=== PATIENT | male | born 1925 | race Caucasian/White ===

== ENCOUNTER 2016-09-15 00:07 | Observation (INO) | payer MEDICARE ==
[2016-09-15] MEDS ORDERED: fentaNYL* 50 MCG/ML 2 ML VIAL (100 MCG VIAL) IV SLOW PU ONE (01:52)
[2016-09-15 03:46] LABS: Hematocrit 34 % (42-52); Hemoglobin 11.7 g/dl (14.0-18.0); Mean Corpuscular HGB Conc 34 g/dl (31-36); Mean Corpuscular Hemoglobin 31 pg (27-31); Mean Corpuscular Volume 90 fL (80-94); Mean Platelet Volume 8 um3 (7.4-10.4); Red Blood Count 3.82 10^6/ul (4.0-5.4); Red Cell Distribution Width 13 % (10.5-15); White Blood Count 10.4 10^3/ul (3.5-10.8)
[2016-09-15 03:47] LABS: Add Diff/Slide Review? Slide Review Added; Comments Flag Yes
[2016-09-15 03:59] LABS: Albumin 3.5 g/dL (3.2-5.2); BUN/Creatinine Ratio 19.1 (8-20); C Reactive Protein 19.27 mg/L (< 5.00); Calcium 9.4 mg/dL (8.6-10.3); EGFR African American 103.5 (>60); EGFR Non-African American 80.5 (>60); Globulin 2.8 g/dL (2-4); Potassium 3.9 mmol/L (3.5-5.0); Total Bilirubin 0.5 mg/dL (0.2-1.0); Total Protein 6.3 g/dL (6.4-8.9)
--- NOTE | 2016-09-15 05:38 | HP ---
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 His came to check on him and called for assistance getting him back up. He reported R hip & elbow pain and so was brought in for evaluation. He has moderate Alzheimer's and is unable to recall the event or whether there was any prodromal symptoms. Currently he denies pain, chest pain, SOB, N/V, cough, congestion, or other issues. CT pelvis reveals a fracture of the R greater trochanter. Vitals and labs are reasonably normal for him. PMedHx prostate CA stg 4 w/ extensive bony metastases AFIB CAD/stent HTN Alzheimer's dementia, moderately advanced depression OAB Ambulatory Orders Bicalutamide [Casodex] 50 mg PO DAILY 10/28/15 Ondansetron ODT TAB* [Zofran Odt TAB*] 4 mg PO Q6H PRN 10/28/15 Venlafaxine HCl [Venlafaxine HCl ER-] 37.5 mg PO DAILY 10/28/15 fentaNYL PATCH 25 MCG/HR* [Duragesic PATCH 25 Mcg/Hr*] 25 mcg TRANSDERM Q72H 04/03 Megestrol TAB* [Megace TAB*] 20 mg PO DAILY 12/21/15 Metoprolol Succinate 25 mg PO DAILY 09/15/16 Vesicare(NF) 20 mg PO DAILY 09/15/16 Allergies Atorvastatin [From Lipitor] Allergy (Intermediate, Verified 09/15/16 03:41) Calf spasms Lisinopril Allergy (Verified 09/15/16 03:41) Swelling Of Face,Lips,& Throat, PALATE SWELLS PSurgHx L-spine surgery L TKA B VANESSA appendectomy SocHx: former smoker, rare alcohol, no recreational drugs; lives with his ; full code status FamHx: Mother passed in her 80s of "old age". Father passed of CVA. Sister passed 2nd complications of Alzheimer's. ROS: as above, otherwise reviewed and all were negative Constitutional: NAD, normally developed, well-nourished elderly white male vitals: Vital Signs Temp 36.6 C 09/15/16 00:10 Pulse 84 09/15/16 03:59 Resp 18 09/15/16 02:38 BP 151/67 09/15/16 03:30 Pulse Ox 96 09/15/16 03:59 Intake & Output 09/14/16 09/14/16 09/15/16 11:59 23:59 11:59 Weight 72.575 kg HEENM: atraumatic; sclera/conjunctiva: non-icteric/clear; hearing: clinically intact; oropharynx: clear, mucosa moist Neck: soft tissue: non-tender; thyroid: normal Pulmonary: clear to auscultation bilaterally, good aeration, no accessory muscle use CV: RR/RR, normal S1S2, no carotid bruit, no jugular venous distention, 2+ B DP/ PT, no edema Abdominal: soft, non-distended, non-tender, no rebound/guarding/rigidity, normoactive bowel sounds, no hepatosplenomegaly or masses, no costovertebral angle tenderness Musculoskeletal: general: grossly intact; gait: at baseline uses walker for very short distance, otherwise uses wheelchair Integumental: normal appearance and texture of exposed skin Psychiatric orientation: AA&O to person only affect: calm mood: pleasant eye contact: good content: unreliable responses: timely insight: poor to absent Testing: Lab Results 09/15/16 09/15/16 09/15/16 Range/Units 03:30 03:30 03:30 WBC 10.4 (3.5-10.8) 10^3/ul RBC 3.82 L (4.0-5.4) 10^6/ul Hgb 11.7 L (14.0-18.0) g/dl Hct 34 L (42-52) % MCV 90 (80-94) fL MCH 31 (27-31) pg MCHC 34 (31-36) g/dl RDW 13 (10.5-15) % Plt Count 174 (150-450) 10^3/ul MPV 8 (7.4-10.4) um3 Neut % (Auto) 84.6 H (38-83) % Lymph % (Auto) 3.8 L (25-47) % [place] % (Auto) 6.4 (1-9) % Eos % (Auto) 2.6 (0-6) % Baso % (Auto) 2.6 H (0-2) % Absolute Neuts (auto) 8.8 H (1.5-7.7) 10^3/ul Absolute Lymphs (auto) 0.4 L (1.0-4.8) 10^3/ul Absolute Monos (auto) 0.7 (0-0.8) 10^3/ul Absolute Eos (auto) 0.3 (0-0.6) 10^3/ul Absolute Basos (auto) 0.3 H (0-0.2) 10^3/ul Absolute Nucleated RBC 0 10^3/ul Nucleated RBC % 0 INR (Anticoag Therapy) 1.08 (0.89-1.11) Sodium 134 (133-145) mmol/L Potassium 3.9 (3.5-5.0) mmol/L Chloride 104 (101-111) mmol/L Carbon Dioxide 22 (22-32) mmol/L Anion Gap 8 (2-11) mmol/L BUN 17 (6-24) mg/dL Creatinine 0.89 (0.67-1.17) mg/dL Est GFR ( Amer) 103.5 (>60) Est GFR (Non-Af Amer) 80.5 (>60) BUN/Creatinine Ratio 19.1 (8-20) Glucose 108 H (70-100) mg/dL Calcium 9.4 (8.6-10.3) mg/dL Total Bilirubin 0.50 (0.2-1.0) mg/dL AST 21 (13-39) U/L ALT 13 (7-52) U/L Alkaline Phosphatase 164 H (34-104) U/L C-Reactive Protein 19.27 H (< 5.00) mg/L Total Protein 6.3 L (6.4-8.9) g/dL Albumin 3.5 (3.2-5.2) g/dL Globulin 2.8 (2-4) g/dL Albumin/Globulin Ratio 1.3 (1-3) ECG, personally reviewed: NSR rate 85, no ischemia CXR, personally reviewed: no acute process CT pelvis WO: Questionable acute pathologic/post-traumatic fracture right greater trochanter. Alternatively, cortical irregularities could be secondary to metastatic erosions. Partly seen soft tissue density above the left hip at extending inferiorly along left greater trochanter, measuring approximately 17.5x8.0x4.9cm, probably an acute hematoma. Small calcifications along lateral border, age uncertain. Partly seen density posterior to right greater trochanter up to 2.8cm thick, possibly another soft tissue hematoma. Multiple lytic and sclerotic lesions, consistent with history of metastases. Bilateral L5 spondylosis with grade 1 aterolisthesis L5-S1. Bilateral hip arthroplasties. Small left inguinal region hernia containing fat. Small bladder diverticula. Diverticulosis colon. Impression: 89M HX metastatic prostate CA presents with mechanical fall and ? pathologic FX of R greater trochanter DIAGNOSIS & PLAN Primary FX of R greater trochanter, ? pathologic : orthopedic surgery consult in AM : pain control : PT evaluation Secondary metastatic prostate CA : continue outpatient follow up with oncology AFIB : continue metoprolol CAD/stent : no acute issues HTN : continue metoprolol depression : continue venlafaxine OAB : continue vesicare Admission Rational: inpatient for L greater trochanter FX not expected to be adequately managed w/i 48H to allow for discharge DVTp: SCDs, no anticoagulation given acute pelvic hematoma Code Status: full HCP:
[2016-09-15] MEDS ORDERED: Acetaminophen TAB* 325 MG PO PRN (06:24)
[2016-09-15] MEDS ORDERED: Ondansetron INJ* 2 MG/ML VIAL IV PRN (06:24)
[2016-09-15] MEDS ORDERED: Albuterol 2.5 MG/3 ML NEB.SOL* (0.083%) INH PRN (06:24)
[2016-09-15] MEDS ORDERED: fentaNYL* 50 MCG/ML 2 ML VIAL (100 MCG VIAL) IV SLOW PU PRN (06:25)
[2016-09-15] MEDS ORDERED: HYDROmorphone* 1 MG/ML 1 ML SYR ONE (07:52)
[2016-09-15] MEDS: HYDROmorphone* 1 MG/ML 1 ML SYR IV SLOW PU PRN (07:56)
[2016-09-15] MEDS: traMADol TAB* 50 MG PO PRN ×2 (07:56→15:07)
--- NOTE | 2016-09-15 11:40 | PN ---
Subjective Date of Service: 09/15/16 Interval History: Mr. Garcia is accompanied by his , Citlali. He denies pain at this time. He does not endorse any acute concerns, including recent fever/chills, CP, SOB, abd pain , n/v. His is helping to feed him. She states that she recently spoke with Dr. Millan and there was a previous plan to have the patient admitted to [facility] prior to his fall. She still wishes him to be a full code. She has spoken with the orthopedist, who was going to speak with Dr. Aggarwal. At this time, no acute concerns or complaints. Family History: Unchanged from Admission Social History: Unchanged from Admission Past Medical History: Unchanged from Admission Objective Active Medications: Acetaminophen (Tylenol Tab*) 650 mg PO Q6H PRN PRN Reason: FEVER/PAIN Albuterol (Ventolin 2.5 Mg/3 Ml Neb.[place]*) 2.5 mg INH Q2H PRN PRN Reason: SOB/WHEEZING Bicalutamide (Casodex (Nf)) 50 mg PO DAILY JUAN PRN Reason: Protocol Docusate Sodium (Colace Cap*) 200 mg PO BID JUAN Fentanyl Citrate (Fentanyl*) 25 mcg IV SLOW PU Q3H PRN PRN Reason: PAIN Hydromorphone HCl (Dilaudid Iv*) 0.5 mg IV SLOW PU Q4H PRN PRN Reason: PAIN Last Admin: 09/15/16 07:56 Dose: 0.5 mg Sodium Chloride (Ns 0.9% 1000 Ml*) 1,000 mls @ 50 mls/hr IV PER RATE [facility] Megestrol Acetate (Megace Tab*) 20 mg PO DAILY [facility] Melatonin (Melatonin (Nf)) 3 mg PO BEDTIME PRN; Protocol PRN Reason: Sleep Metoprolol Succinate (Toprol Xl Tab*) 25 mg PO DAILY JUAN Omeprazole (Prilosec Cap*) 20 mg PO DAILY@0600 JUAN Ondansetron HCl (Zofran Inj*) 4 mg IV Q6H PRN PRN Reason: NAUSEA Solifenacin (Vesicare(Nf)) 20 mg PO DAILY JUAN Tramadol HCl (Ultram*) 50 mg PO Q6H PRN PRN Reason: PAIN Last Admin: 09/15/16 07:56 Dose: 50 mg Venlafaxine HCl (Effexor Xr Cap*) 37.5 mg PO DAILY JUAN Vital Signs 09/15/16 09/15/16 09/15/16 06:55 06:57 06:59 Temperature 98.9 F Pulse Rate 70 63 Respiratory 18 Rate Blood Pressure 131/66 131/66 (mmHg) O2 Sat by Pulse 96 94 Oximetry 09/15/16 09/15/16 07:45 07:56 Temperature 98.2 F Pulse Rate 77 Respiratory 16 16 Rate Blood Pressure 137/67 (mmHg) O2 Sat by Pulse 98 Oximetry Oxygen Devices in Use Now: None Appearance: Pleasant, elderly male, lying in bed, NAD Eyes: PERRLA Ears/Nose/Mouth/Throat: Mucous Membranes Moist Neck: NL Appearance and Movements; NL JVP Respiratory: Symmetrical Chest Expansion and Respiratory Effort, Clear to Auscultation Cardiovascular: NL Sounds; No Murmurs; No JVD, RRR Abdominal: NL Sounds; No Tenderness; No Distention Extremities: No Edema, - - distal pulses 2+, sensation and movement to distal extremites intact Neurological: - - alert, oriented to person only Lines/Tubes/Other Access: Clean, Dry and Intact Peripheral IV Nutrition: Taking PO's Result Diagrams: 09/15/16 03:30 09/15/16 03:30 Assess/Plan/Problems-Billing Assessment: Mr. Garcia is an 89 yo male with a PMH of stage 4 metastatic prostate ca, atrial fib, CAD with stent, HTN, overactive bladder, Alzheimer's dementia, and depression who was admitted on 09/15/16 after a fall at home; pt was found to have a fracture of the right greater trochanter (question if pathologic). - Patient Problems (1) Fracture of greater trochanter of right femur Code(s): S72.111A - DISP FX OF GREATER TROCHANTER OF RIGHT FEMUR, INIT Comment : Ortho consult ? if pathologic or secondary to fall Pain management (2) Prostate cancer Code(s): C61 - MALIGNANT NEOPLASM OF PROSTATE Comment: Stage IV with metastases to bone Continue home bicalutamide Outpatient follow-up with oncology (3) Atrial fibrillation Code(s): I48.91 - UNSPECIFIED ATRIAL FIBRILLATION Comment: Not an active issue Continue home metoprolol. (4) CAD (coronary artery disease) Code(s): I25.10 - ATHSCL HEART DISEASE OF [place] CORONARY ARTERY W/O ANG PCTRS Comment: History of stent placement Continue beta luis antonio. (5) HTN (hypertension) Code(s): I10 - ESSENTIAL (PRIMARY) HYPERTENSION Comment: Normotensive Continue metoprolol. (6) Alzheimer's dementia Code(s): G30.9 - ALZHEIMER'S DISEASE, UNSPECIFIED Comment: Supportive care (7) Overactive bladder Code(s): N32.81 - OVERACTIVE BLADDER Comment: Continue vesicare. (8) Depression Code(s): F32.9 - MAJOR DEPRESSIVE DISORDER, SINGLE EPISODE, UNSPECIFIED Comment: Continue venlafaxine. (9) DVT prophylaxis Code(s): USP8587 - Comment: Concern for acute pelvic hematoma, anticoagulation contraindicated SCDs (10) Full code status Code(s): Z78.9 - OTHER SPECIFIED HEALTH STATUS Comment: Discussed with patient's , who is HCP Remains full code as of 09/15/16 Status and Disposition: Inpatient admission. Anticipate LOS >2 days.
[2016-09-15] MEDS: Solifenacin(NF) 10 MG TAB PO SCH (11:50)
[2016-09-15] MEDS: BICALUTAMIDE 50 MG PO SCH (11:52)
[2016-09-15] MEDS: Docusate CAP* 100 MG PO SCH ×2 (11:52→20:48)
[2016-09-15] MEDS: Metoprolol Succinate XL TAB* 25 MG PO SCH (11:52)
[2016-09-15] MEDS: Megestrol TAB* 40 MG PO SCH (11:53)
[2016-09-15] MEDS: Venlafaxine EXT RELEASE CAP* 37.5 MG PO SCH (11:53)
--- NOTE | 2016-09-15 11:57 | RAD ---
Indication: RIGHT knee pain post fall. Comparison: No relevant prior exams available on the [facility]. Technique: AP, tunnel, lateral, and sunrise views RIGHT knee Report: Small suprapatellar joint effusion. Bone density appears decreased throughout. No fracture evident. Severe osteophytosis and joint space narrowing most marked at the femoral tibial articulations with flattening of the articular surfaces and subchondral sclerosis. Associated 1.2 cm lateral translation of the tibial plateau relative to the femoral condyles. Small loose bodies at the medial joint recess. Mild anterior soft tissue swelling. Vascular calcifications. IMPRESSION: 1. Negative for fracture. 2. Small suprapatellar joint effusion. 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
--- NOTE | 2016-09-15 12:06 | CONS ---
CONSULTATION REPORT: DATE OF CONSULT: 09/15/16 ATTENDING PHYSICIAN: Dr. Andrew Bowden. CONSULTING PHYSICIAN: Dr. Dang. PRIMARY CARE PHYSICIAN: Dr. Millan. POULTRY BREEDER: Dr. Giraldo. CHIEF COMPLAINT: Right hip pain. HISTORY OF PRESENT ILLNESS: Briefly, Mr. Garcia is an 89-year-old male with stage IV prostate cancer and moderate dementia and moderate Alzheimer's disease , who fell on September 14, when he slipped down a chair on the floor. This is his second fall. He also fell about 5 weeks ago on the right side, but was able to ambulate after that. His came to check on him and called for assistance to lift him up. He had a lot of right hip pain and was unable to fully bear weight. He was brought in for evaluation. After obtaining x-rays and a CT scan in the ER, he was diagnosed with a nondisplaced pathologic fracture of the greater trochanter. Otherwise, he has been in the usual state of health. He is supposed to go [facility] for placement on Friday. PAST MEDICAL HISTORY: Prostate cancer, stage IV, with extensive bony metastasis ; AFib; coronary artery disease; hypertension; Alzheimer's dementia; moderately advanced depression. PAST SURGICAL HISTORY: Lumbar spine surgery, bilateral total hip arthroplasty, left total knee arthroplasty, all done by Dr. Navjot Hussein in the ; appendectomy. MEDICATIONS: 1. Acetaminophen. 2. Albuterol. 3. Casodex. 4. Colace. 5. Fentanyl. 6. Dilaudid. 7. Megace. 8. Melatonin. 9. Toprol. 10. Prilosec. 11. Zofran. 12. VESIcare. 13. Ultram. 14. Effexor. ALLERGIES: To ATORVASTATIN and LISINOPRIL. FAMILY HISTORY: His mother in the 80s of old age. Father had a cerebrovascular event. Sister passed complications due to Alzheimer's disease. SOCIAL HISTORY: He is a former smoker. He drinks alcohol rarely. He lives with his . He is about to be transferred to [facility]. He ambulates only in the house with a walker. Otherwise, she has been caring for him. REVIEW OF SYSTEMS: A 14-point review of systems is reviewed with the patient and is significant for the above complaint. Otherwise, remainder of systems is negative. PHYSICAL EXAM: He is in no acute distress. He is well developed, well nourished. He is alert and oriented only to himself. He is pleasant. He is conversant, but he is very confused. Chest is clear. He breaths comfortably without any difficulty. Heart has regular rate and rhythm. Examination of the right leg demonstrates his skin is intact. He has a well-healed incision about the hip. He is very tender to palpation. I do not see any obvious bruising, although it is difficult to mobilize him in the bed. He is nontender about the knee, although he is resting with his hip in a flexed position. His calf is soft and nontender. He is able to dorsiflex/plantarflex his ankle. He is sensate to light touch about the first dorsal webspace, medial, lateral, dorsal , and plantar foot. He has 2+ PT pulse. DIAGNOSTIC STUDIES/LAB DATA: Dated on September 15 demonstrates white blood cell count of 10.4, hematocrit 34, and platelet count 174. INR 1.08. Sodium is 134 , potassium 3.9, chloride 104, carbon dioxide 22, BUN 17, creatinine 0.89, glucose 108, alk phos is 164. CRP is 19.27. X-rays reviewed that include views of the pelvis demonstrate extensive metastatic disease of the pelvis as well as the hip as well as the pathologic fracture of the greater trochanter. There was CT scan done as well, although the fracture is visible, which demonstrates again he has extensive metastatic disease in his pelvis as well as his hips and this is a pathologic fracture through mets. The x-rays of the knee were also reviewed. Otherwise, he does have a total hip arthroplasty, which is in good condition. Examination of his right knee demonstrates significant osteoarthritis with deformity of the knee. His bone-on - bone arthritis appears to be significant varus deformity. ASSESSMENT AND PLAN: He is 89 years old. He has multiple medical problems including moderate Alzheimer's. He also has stage IV prostate cancer. At this point, his fracture has not been displaced and even though he has a lot of pain with weightbearing, I think we will try a course of nonoperative treatment. I will discuss this again with my joints colleague, Dr. Aggarwal, to see what her input is, likely either she or I will follow this, but for now I would not recommend operative treatment. I would recommend pain control. He can do PT/ OT. He is allowed to touch down and weight bear. He is not allowed to abduct his hip nor should he internally or externally rotate it significant. CC: Dr. Millan * [id number]/[facility] #: [id number] MTDD
--- NOTE | 2016-09-15 12:35 | RAD ---
Indication: RIGHT hip pain post fall. Prostate carcinoma with bone metastasis. Comparison: December 21, 2015 CT. Technique: Noncontrast CT pelvis. Multiplanar reformation with bone algorithm. Report: Artifact from the bilateral hip prostheses. Diffuse osteoblastic bone metastasis. Bilateral hip prostheses in place with normal articular alignment. The distal aspects of the stems of the femoral components are not completely included in the [id number]. No gross stigmata of prosthesis loosening. There is an acute appearing avulsion fracture of the RIGHT greater trochanter reference the coronal reformatted series images 86-100 of 145 with approximate 7 mm cephalad displacement. Suggestion of periosseous hematoma posterior to the fracture measuring up to 3.1 cm AP by 5.4 cm transverse by 7.3 cm cephalocaudal. No additional fracture evident within the [id number]. Unchanged probable chronic hematoma posterolateral to the LEFT hip measures up to 6.1 cm AP by 6.4 cm transverse by 12.8 cm cephalocaudal with associated marginal calcifications. Normal alignment at the sacroiliac joints and pubic symphysis. Lumbar sacral spine degenerative spondylosis and facet joint osteoarthritis. Negative for free pelvic fluid or suspicious finding of the visualized lower abdominal and pelvic viscera. IMPRESSION: 1. No significant change in burden of diffuse osteoblastic metastasis. 2. Acute avulsion fracture of the RIGHT greater trochanter reference the coronal reformatted series images 86-100 of 145 with approximate 7 mm cephalad displacement. Suggestion of associated periosseous hematoma posterior to the fracture measuring up to 3.1 cm AP by 5.4 cm transverse by 7.3 cm cephalocaudal. No additional fracture evident within the [id number]. 2. No evidence for RIGHT or LEFT hip joint malalignment or prosthesis loosening.
--- NOTE | 2016-09-15 12:38 | RAD ---
Indication: RIGHT hip pain post fall. Metastatic prostate carcinoma. Comparison: CT of the same date. Technique: AP pelvis and AP and frog-leg lateral views RIGHT hip. Report: Diffuse osteoblastic metastatic lesions. The RIGHT hip prosthesis is normally located and without compelling evidence for loosening. Avulsion fracture at the RIGHT greater trochanter likely pathologic secondary to high burden of metastatic disease with only mild superior displacement measuring less than 1 cm. Soft tissue density visualized superior to the RIGHT greater trochanter corresponds with hematoma on CT. No additional fractures evident. Unremarkable appearance of the LEFT hip prosthesis in the AP projection. Lumbar sacral spine degenerative spondylosis and facet joint osteoarthritis. IMPRESSION: Probable pathologic avulsion fracture of the RIGHT greater trochanter with only mild cephalad displacement. Associated periosseous hematoma.
--- NOTE | 2016-09-15 12:45 | RAD ---
Indication: Preoperative chest radiograph for hip fracture. Diffuse osteoblastic metastasis. Comparison: December 21, 2015 CT. Technique: Upright AP 0410 hours Report: Diffuse osteoblastic metastasis. Mild prominence of the interstitial markings. No focal pulmonary lesion, pleural effusion, pneumothorax. Upper normal heart size. Unremarkable central pulmonary vasculature. Mildly tortuous descending thoracic aorta. IMPRESSION: 1. Diffuse osteoblastic metastasis. 2. Upper normal heart size. 3. No evidence for acute intrathoracic disease.
[2016-09-15 14:08] LABS: Hematocrit 34 % (42-52); Hemoglobin 11.8 g/dl (14.0-18.0)
[2016-09-15] MEDS ORDERED: Haloperidol INJ IV/IM* 5 MG/ML AMP IV SLOW PU PRN (16:20)
[2016-09-15] MEDS ORDERED: QUEtiapine TAB* 25 MG PO PRN (16:20)
[2016-09-16] MEDS: traMADol TAB* 50 MG PO PRN ×3 (00:01→20:00)
[2016-09-16] MEDS: MELATONIN 3 MG PO PRN ×2 (00:43→22:15)
[2016-09-16] MEDS: NS 0.9% 1000 ML* 1,000 ML IV SCH ×2 (02:53→22:18)
[2016-09-16] MEDS: Omeprazole CAP* 20 MG PO SCH (06:00)
[2016-09-16] MEDS: HYDROmorphone* 1 MG/ML 1 ML SYR IV SLOW PU PRN (08:23)
--- NOTE | 2016-09-16 08:58 | PN ---
Subjective Date of Service: 09/16/16 Family History: Unchanged from Admission Social History: Unchanged from Admission Past Medical History: Unchanged from Admission Objective Active Medications: Acetaminophen (Tylenol Tab*) 650 mg PO Q6H PRN PRN Reason: FEVER/PAIN Last Admin: 09/15/16 15:08 Dose: 650 mg Albuterol (Ventolin 2.5 Mg/3 Ml Neb.[place]*) 2.5 mg INH Q2H PRN PRN Reason: SOB/WHEEZING Bicalutamide (Casodex (Nf)) 50 mg PO DAILY [facility] PRN Reason: Protocol Last Admin: 09/15/16 11:52 Dose: 50 mg Docusate Sodium (Colace Cap*) 200 mg PO BID [facility] Last Admin: 09/15/16 20:48 Dose: 200 mg Fentanyl Citrate (Fentanyl*) 25 mcg IV SLOW PU Q3H PRN PRN Reason: PAIN Haloperidol Lactate (Haldol Inj Iv/Im*) 2 mg IV SLOW PU Q6H PRN PRN Reason: AGITATION Hydromorphone HCl (Dilaudid Iv*) 0.5 mg IV SLOW PU Q4H PRN PRN Reason: PAIN Last Admin: 09/16/16 08:23 Dose: 0.5 mg Sodium Chloride (Ns 0.9% 1000 Ml*) 1,000 mls @ 50 mls/hr IV PER RATE [facility] Last Admin: 09/16/16 02:53 Dose: 50 mls/hr Megestrol Acetate (Megace Tab*) 20 mg PO DAILY [facility] Last Admin: 09/15/16 11:53 Dose: 20 mg Melatonin (Melatonin (Nf)) 3 mg PO BEDTIME PRN; Protocol PRN Reason: Sleep Last Admin: 09/16/16 00:43 Dose: 3 mg Metoprolol Succinate (Toprol Xl Tab*) 25 mg PO DAILY [facility] Last Admin: 09/15/16 11:52 Dose: 25 mg Omeprazole (Prilosec Cap*) 20 mg PO DAILY@0600 [facility] Last Admin: 09/16/16 06:00 Dose: 20 mg Ondansetron HCl (Zofran Inj*) 4 mg IV Q6H PRN PRN Reason: NAUSEA Quetiapine Fumarate (Seroquel Tab*) 12.5 mg PO DAILY PRN PRN Reason: AGITATION/ANXIETY Solifenacin (Vesicare(Nf)) 20 mg PO DAILY [facility] Last Admin: 09/15/16 11:50 Dose: Not Given Tramadol HCl (Ultram*) 50 mg PO Q6H PRN PRN Reason: PAIN Last Admin: 09/16/16 06:00 Dose: 50 mg Venlafaxine HCl (Effexor Xr Cap*) 37.5 mg PO DAILY [facility] Last Admin: 09/15/16 11:53 Dose: 37.5 mg Vital Signs 09/15/16 09/15/16 09/15/16 12:00 13:48 14:28 Temperature 98.9 F Pulse Rate 74 74 Respiratory 15 16 Rate Blood Pressure 127/49 (mmHg) O2 Sat by Pulse 95 95 Oximetry 09/15/16 09/15/16 09/15/16 15:07 15:44 17:07 Temperature 97.5 F Pulse Rate 66 Respiratory 16 14 16 Rate Blood Pressure 115/49 (mmHg) O2 Sat by Pulse 97 Oximetry 09/15/16 09/15/16 09/15/16 19:45 19:48 20:15 Temperature 98.2 F Pulse Rate 61 Respiratory 17 17 16 Rate Blood Pressure 114/47 (mmHg) O2 Sat by Pulse 96 Oximetry 09/16/16 09/16/16 09/16/16 00:01 02:01 03:58 Temperature Pulse Rate 60 Respiratory 16 16 16 Rate Blood Pressure 148/58 (mmHg) O2 Sat by Pulse 95 Oximetry 09/16/16 09/16/16 09/16/16 06:00 08:00 08:14 Temperature 98.1 F Pulse Rate 60 Respiratory 16 18 18 Rate Blood Pressure 134/60 (mmHg) O2 Sat by Pulse 96 Oximetry 09/16/16 09/16/16 08:23 08:49 Temperature Pulse Rate 76 Respiratory 18 15 Rate Blood Pressure (mmHg) O2 Sat by Pulse 95 Oximetry Oxygen Devices in Use Now: None Result Diagrams: 09/15/16 14:01 09/15/16 03:30 Assess/Plan/Problems-Billing Assessment: Mr. Garcia is an 89 yo male with a PMH of stage 4 metastatic prostate ca, atrial fib, CAD with stent, HTN, overactive bladder, Alzheimer's dementia, and depression who was admitted on 09/15/16 after a fall at home; pt was found to have a fracture of the right greater trochanter (question if pathologic). - Patient Problems (1) Fracture of greater trochanter of right femur Code(s): S72.111A - DISP FX OF GREATER TROCHANTER OF RIGHT FEMUR, INIT Comment : Ortho consult ? if pathologic or secondary to fall Pain management (2) Prostate cancer Code(s): C61 - MALIGNANT NEOPLASM OF PROSTATE Comment: Stage IV with metastases to bone Continue home bicalutamide Outpatient follow-up with oncology (3) Atrial fibrillation Code(s): I48.91 - UNSPECIFIED ATRIAL FIBRILLATION Comment: Not an active issue Continue home metoprolol. (4) CAD (coronary artery disease) Code(s): I25.10 - ATHSCL HEART DISEASE OF [place] CORONARY ARTERY W/O ANG PCTRS Comment: History of stent placement Continue beta luis antonio. (5) HTN (hypertension) Code(s): I10 - ESSENTIAL (PRIMARY) HYPERTENSION Comment: Normotensive Continue metoprolol. (6) Alzheimer's dementia Code(s): G30.9 - ALZHEIMER'S DISEASE, UNSPECIFIED Comment: Supportive care (7) Overactive bladder Code(s): N32.81 - OVERACTIVE BLADDER Comment: Continue vesicare. (8) Depression Code(s): F32.9 - MAJOR DEPRESSIVE DISORDER, SINGLE EPISODE, UNSPECIFIED Comment: Continue venlafaxine. (9) DVT prophylaxis Code(s): [id number] - Comment: Concern for acute pelvic hematoma, anticoagulation contraindicated SCDs (10) Full code status Code(s): Z78.9 - OTHER SPECIFIED HEALTH STATUS Comment: Discussed with patient's , who is HCP Remains full code as of 09/15/16 Status and Disposition: Inpatient admission. Anticipate LOS >2 days.
--- NOTE | 2016-09-16 09:18 | PN ---
Progress Note - Progress Note Note: Discussed patient with Dr Aggarwal who agrees that this should be treated nonoperatively with close follow up. He should follow up with Dr Aggarwal within the next 10 days. Please call with any questions. Thank you for the consult.
[2016-09-16] MEDS: BICALUTAMIDE 50 MG PO SCH (09:34)
[2016-09-16] MEDS: Venlafaxine EXT RELEASE CAP* 37.5 MG PO SCH (09:35)
[2016-09-16] MEDS: Docusate CAP* 100 MG PO SCH ×2 (09:35→20:00)
[2016-09-16] MEDS: Metoprolol Succinate XL TAB* 25 MG PO SCH (09:35)
[2016-09-16] MEDS: Megestrol TAB* 40 MG PO SCH (09:35)
[2016-09-16] MEDS: Solifenacin(NF) 10 MG TAB PO SCH (09:36)
--- NOTE | 2016-09-16 11:08 | PN ---
Progress Note - Progress Note SOAP: Subjective: [] He is a little better today. Worked with PT to light touch, still up with sahra lift. Pain controlled. Seen by ortho, no surgery. Acetaminophen (Tylenol Tab*) 650 mg PO Q6H PRN PRN Reason: FEVER/PAIN Last Admin: 09/15/16 15:08 Dose: 650 mg Albuterol (Ventolin 2.5 Mg/3 Ml Neb[place]*) 2.5 mg INH Q2H PRN PRN Reason: SOB/WHEEZING Bicalutamide (Casodex (Nf)) 50 mg PO DAILY [facility] PRN Reason: Protocol Last Admin: 09/16/16 09:34 Dose: 50 mg Docusate Sodium (Colace Cap*) 200 mg PO BID [facility] Last Admin: 09/16/16 09:35 Dose: 200 mg Fentanyl Citrate (Fentanyl*) 25 mcg IV SLOW PU Q3H PRN PRN Reason: PAIN Haloperidol Lactate (Haldol Inj Iv/Im*) 2 mg IV SLOW PU Q6H PRN PRN Reason: AGITATION Hydromorphone HCl (Dilaudid Iv*) 0.5 mg IV SLOW PU Q4H PRN PRN Reason: PAIN Last Admin: 09/16/16 08:23 Dose: 0.5 mg Sodium Chloride (Ns 0.9% 1000 Ml*) 1,000 mls @ 50 mls/hr IV PER RATE [facility] Last Admin: 09/16/16 02:53 Dose: 50 mls/hr Megestrol Acetate (Megace Tab*) 20 mg PO DAILY [facility] Last Admin: 09/16/16 09:35 Dose: 20 mg Melatonin (Melatonin (Nf)) 3 mg PO BEDTIME PRN; Protocol PRN Reason: Sleep Last Admin: 09/16/16 00:43 Dose: 3 mg Metoprolol Succinate (Toprol Xl Tab*) 25 mg PO DAILY [facility] Last Admin: 09/16/16 09:35 Dose: 25 mg Omeprazole (Prilosec Cap*) 20 mg PO DAILY@0600 [facility] Last Admin: 09/16/16 06:00 Dose: 20 mg Ondansetron HCl (Zofran Inj*) 4 mg IV Q6H PRN PRN Reason: NAUSEA Quetiapine Fumarate (Seroquel Tab*) 12.5 mg PO DAILY PRN PRN Reason: AGITATION/ANXIETY Solifenacin (Vesicare(Nf)) 20 mg PO DAILY [facility] Last Admin: 09/16/16 09:36 Dose: Not Given Tramadol HCl (Ultram*) 50 mg PO Q6H PRN PRN Reason: PAIN Last Admin: 09/16/16 06:00 Dose: 50 mg Venlafaxine HCl (Effexor Xr Cap*) 37.5 mg PO DAILY [facility] Last Admin: 09/16/16 09:35 Dose: 37.5 mg Objective: [] Vital Signs Temp Pulse Resp BP Pulse Ox 98.1 F 76 18 134/60 95 09/16/16 08:14 09/16/16 08:49 09/16/16 09:23 09/16/16 08:14 09/16/16 08:49 HEENT - Mucosa moist, pale CTA RRR S1S2 +BS Neuro - cooperative, he is not oriented to history or reason for being in hospital. Assessment: []Prostate cancer, androgen sensitive but with diffuse disease. Status post fall , fracture, non operable. Plan: []1. Hip fracture. Seen by ortho and conservative management. Question expected rate of improvement and pace of PT. 2. Prostate cancer. Advanced disease but appears controlled for time being on Casodex. Will continue. At progression not a candidate for chemotherapy. 3. Placement. Had been planning [facility]. May need short term re-hab first. 4. Dementia. Stable, haldol and avoid Ativan
--- NOTE | 2016-09-16 11:13 | PN ---
Subjective Date of Service: 09/16/16 Interval History: Patient seen and examined at bedside. This is an 89 yo male with advancing dementia and stage IV prostate ca. His , Citlali, is in the room. Citlali would like to pursue rehab with PMRU prior to discharge. She is in agreement that the patient is unable to go home; patient was scheduled to be admitted to [facility] today prior to fall. I did speak with Elaine, nurse testing manager, at [facility], who stated that they are ready to receive the patient, assuming his pain medication regimen is appropriate. They are able to help with mechanical transfers. I did convey this to Citlali, who still wishes to pursue PMRU. She does not want to consider [facility] at any fpc facilities. I did explain that the patient may not qualify for our PMRU. She would rather he go to [facility] if PMRU is not an option. I did express to Citlali that palliative care/Hospice services would be a good option for discharge, as the patient may need further attention. She did receive this information well but states she wants to focus on rehab first and then discuss this later. Patient OOB to chair, eating breakfast. He does not remember me from yesterday or other staff members but is pleasant. He states, "I'm feeling fine." No acute concerns expressed by staff or pt's at this time. Family History: Unchanged from Admission Social History: Unchanged from Admission Past Medical History: Unchanged from Admission Objective Active Medications: Acetaminophen (Tylenol Tab*) 650 mg PO Q6H PRN PRN Reason: FEVER/PAIN Last Admin: 09/15/16 15:08 Dose: 650 mg Albuterol (Ventolin 2.5 Mg/3 Ml Neb[place]*) 2.5 mg INH Q2H PRN PRN Reason: SOB/WHEEZING Bicalutamide (Casodex (Nf)) 50 mg PO DAILY [facility] PRN Reason: Protocol Last Admin: 09/16/16 09:34 Dose: 50 mg Docusate Sodium (Colace Cap*) 200 mg PO BID [facility] Last Admin: 09/16/16 09:35 Dose: 200 mg Fentanyl Citrate (Fentanyl*) 25 mcg IV SLOW PU Q3H PRN PRN Reason: PAIN Haloperidol Lactate (Haldol Inj Iv/Im*) 2 mg IV SLOW PU Q6H PRN PRN Reason: AGITATION Hydromorphone HCl (Dilaudid Iv*) 0.5 mg IV SLOW PU Q4H PRN PRN Reason: PAIN Last Admin: 09/16/16 08:23 Dose: 0.5 mg Sodium Chloride (Ns 0.9% 1000 Ml*) 1,000 mls @ 50 mls/hr IV PER RATE [facility] Last Admin: 09/16/16 02:53 Dose: 50 mls/hr Megestrol Acetate (Megace Tab*) 20 mg PO DAILY [facility] Last Admin: 09/16/16 09:35 Dose: 20 mg Melatonin (Melatonin (Nf)) 3 mg PO BEDTIME PRN; Protocol PRN Reason: Sleep Last Admin: 09/16/16 00:43 Dose: 3 mg Metoprolol Succinate (Toprol Xl Tab*) 25 mg PO DAILY [facility] Last Admin: 09/16/16 09:35 Dose: 25 mg Omeprazole (Prilosec Cap*) 20 mg PO DAILY@0600 [facility] Last Admin: 09/16/16 06:00 Dose: 20 mg Ondansetron HCl (Zofran Inj*) 4 mg IV Q6H PRN PRN Reason: NAUSEA Quetiapine Fumarate (Seroquel Tab*) 12.5 mg PO DAILY PRN PRN Reason: AGITATION/ANXIETY Solifenacin (Vesicare(Nf)) 20 mg PO DAILY [facility] Last Admin: 09/16/16 09:36 Dose: Not Given Tramadol HCl (Ultram*) 50 mg PO Q6H PRN PRN Reason: PAIN Last Admin: 09/16/16 06:00 Dose: 50 mg Venlafaxine HCl (Effexor Xr Cap*) 37.5 mg PO DAILY [facility] Last Admin: 09/16/16 09:35 Dose: 37.5 mg Vital Signs 09/15/16 09/15/16 09/15/16 12:00 13:48 14:28 Temperature 98.9 F Pulse Rate 74 74 Respiratory 15 16 Rate Blood Pressure 127/49 (mmHg) O2 Sat by Pulse 95 95 Oximetry 09/15/16 09/15/16 09/15/16 15:07 15:44 17:07 Temperature 97.5 F Pulse Rate 66 Respiratory 16 14 16 Rate Blood Pressure 115/49 (mmHg) O2 Sat by Pulse 97 Oximetry 04/30/17 04/30/17 04/30/17 19:45 19:48 20:15 Temperature 98.2 F Pulse Rate 61 Respiratory 17 17 16 Rate Blood Pressure 114/47 (mmHg) O2 Sat by Pulse 96 Oximetry 09/16/16 09/16/16 09/16/16 00:01 02:01 03:58 Temperature Pulse Rate 60 Respiratory 16 16 16 Rate Blood Pressure 148/58 (mmHg) O2 Sat by Pulse 95 Oximetry 09/16/16 09/16/16 09/16/16 06:00 08:00 08:14 Temperature 98.1 F Pulse Rate 60 Respiratory 16 18 18 Rate Blood Pressure 134/60 (mmHg) O2 Sat by Pulse 96 Oximetry 09/16/16 09/16/16 09/16/16 08:23 08:49 09:23 Temperature Pulse Rate 76 Respiratory 18 15 18 Rate Blood Pressure (mmHg) O2 Sat by Pulse 95 Oximetry Oxygen Devices in Use Now: None Appearance: Pleasant, male patient, OOB to chair, NAD Eyes: PERRLA Ears/Nose/Mouth/Throat: Mucous Membranes Moist Neck: NL Appearance and Movements; NL JVP Respiratory: Symmetrical Chest Expansion and Respiratory Effort, Clear to Auscultation Cardiovascular: NL Sounds; No Murmurs; No JVD, RRR Abdominal: NL Sounds; No Tenderness; No Distention Extremities: No Edema, - - distally nvi, 2+ distal pulses, good distal sensation and movement. Neurological: - - Alert, oriented to self only Lines/Tubes/Other Access: Clean, Dry and Intact Peripheral IV Nutrition: Taking PO's Result Diagrams: 09/15/16 14:01 09/15/16 03:30 Assess/Plan/Problems-Billing Assessment: Mr. Garcia is an 89 yo male with a PMH of stage 4 metastatic prostate ca, atrial fib, CAD with stent, HTN, overactive bladder, Alzheimer's dementia, and depression who was admitted on 09/15/16 after a fall at home; pt was found to have a fracture of the right greater trochanter (question if pathologic). - Patient Problems (1) Fracture of greater trochanter of right femur Code(s): S72.111A - DISP FX OF GREATER TROCHANTER OF RIGHT FEMUR, INIT Comment : Ortho recommends non-operative management Toe-touch weight bearing PT/OT ? if fx is pathologic or secondary to fall Continue pain management Pursue PMRU today. If not a candidate, will readdress palliative care with and anticipate d/c to [facility]. (2) Prostate cancer Code(s): C61 - MALIGNANT NEOPLASM OF PROSTATE Comment: Stage IV with metastases to bone Continue home bicalutamide Outpatient follow-up with oncology (3) Atrial fibrillation Code(s): I48.91 - UNSPECIFIED ATRIAL FIBRILLATION Comment: Not an active issue Continue home metoprolol. (4) CAD (coronary artery disease) Code(s): I25.10 - ATHSCL HEART DISEASE OF [place] CORONARY ARTERY W/O ANG PCTRS Comment: History of stent placement Continue beta luis antonio. (5) HTN (hypertension) Code(s): I10 - ESSENTIAL (PRIMARY) HYPERTENSION Comment: Normotensive Continue metoprolol. (6) Alzheimer's dementia Code(s): G30.9 - ALZHEIMER'S DISEASE, UNSPECIFIED Comment: Supportive care (7) Overactive bladder Code(s): N32.81 - OVERACTIVE BLADDER Comment: Continue vesicare. (8) Depression Code(s): F32.9 - MAJOR DEPRESSIVE DISORDER, SINGLE EPISODE, UNSPECIFIED Comment: Continue venlafaxine. (9) DVT prophylaxis Code(s): [id number] - Comment: Concern for acute pelvic hematoma, anticoagulation contraindicated SCDs (10) Full code status Code(s): Z78.9 - OTHER SPECIFIED HEALTH STATUS Comment: Discussed with patient's , who is HCP Remains full code as of 09/15/16 Status and Disposition: Inpatient admission. Anticipate LOS >2 days.
--- NOTE | 2016-09-16 14:53 | PN ---
Progress Note - Progress Note SOAP: Subjective: [89 yo male with stage 4 metastatic prostate cancer, alzheimer's, other medical issues and pathologic R greater troch fx. Reports no pain. Denies CP, SOB, lightheadedness, calf pain. ] Objective: [Alert, Confused. Sitting apparently comfortably in chair. R hip with TTP laterally. Claves soft, NT. NV status intact. Vital Signs: Temp Pulse Resp BP Pulse Ox 98.0 F 58 18 116/59 100 09/16/16 12:09 09/16/16 12:09 09/16/16 12:09 09/16/16 12:09 09/16/16 12:09 ] Assessment: [R hip pathologic greater trochanter fracture - non-operative] Plan: [Pain management PT/OT - Touchdown WB R LE, no hip abduction, No IR/ER Ortho Will con't to follow]
[2016-09-17] MEDS: Omeprazole CAP* 20 MG PO SCH (05:27)
[2016-09-17] MEDS: traMADol TAB* 50 MG PO PRN (05:27)
[2016-09-17] MEDS: Solifenacin(NF) 10 MG TAB PO SCH (07:18)
[2016-09-17] MEDS: Megestrol TAB* 40 MG PO SCH (07:55)
[2016-09-17] MEDS: Metoprolol Succinate XL TAB* 25 MG PO SCH (07:55)
[2016-09-17] MEDS: Docusate CAP* 100 MG PO SCH (07:55)
[2016-09-17] MEDS: Venlafaxine EXT RELEASE CAP* 37.5 MG PO SCH (07:56)
[2016-09-17] MEDS: BICALUTAMIDE 50 MG PO SCH (07:56)
--- NOTE | 2016-09-17 07:58 | PN ---
Progress Note - Progress Note SOAP: Subjective: pt resting comfortably with continued complaints of right hip pain Objective: Vital Signs Temp Pulse Resp BP Pulse Ox 97.5 F 64 16 147/55 95 09/17/16 03:27 09/17/16 03:27 09/17/16 07:27 09/17/16 03:27 09/17/16 03:27 Laboratory Last Values WBC 10.4 10^3/ul (3.5-10.8) 09/15/16 03:30 RBC 3.82 10^6/ul (4.0-5.4) L 09/15/16 03:30 Hgb 11.8 g/dl (14.0-18.0) L 09/15/16 14:01 Hct 34 % (42-52) L 09/15/16 14:01 MCV 90 fL (80-94) 09/15/16 03:30 MCH 31 pg (27-31) 09/15/16 03:30 MCHC 34 g/dl (31-36) 09/15/16 03:30 RDW 13 % (10.5-15) 09/15/16 03:30 Plt Count 174 10^3/ul (150-450) 09/15/16 03:30 MPV 8 um3 (7.4-10.4) 09/15/16 03:30 Neut % (Auto) 84.6 % (38-83) H 09/15/16 03:30 Lymph % (Auto) 3.8 % (25-47) L 09/15/16 03:30 Centre % (Auto) 6.4 % (1-9) 09/15/16 03:30 Eos % (Auto) 2.6 % (0-6) 09/15/16 03:30 Baso % (Auto) 2.6 % (0-2) H 09/15/16 03:30 Absolute Neuts (auto) 8.8 10^3/ul (1.5-7.7) H 09/15/16 03:30 Absolute Lymphs (auto) 0.4 10^3/ul (1.0-4.8) L 09/15/16 03:30 Absolute Monos (auto) 0.7 10^3/ul (0-0.8) 09/15/16 03:30 Absolute Eos (auto) 0.3 10^3/ul (0-0.6) 09/15/16 03:30 Absolute Basos (auto) 0.3 10^3/ul (0-0.2) H 09/15/16 03:30 Absolute Nucleated RBC 0 10^3/ul 09/15/16 03:30 Nucleated RBC % 0 09/15/16 03:30 INR (Anticoag Therapy) 1.08 (0.89-1.11) 09/15/16 03:30 Sodium 134 mmol/L (133-145) 09/15/16 03:30 Potassium 3.9 mmol/L (3.5-5.0) 09/15/16 03:30 Chloride 104 mmol/L (101-111) 09/15/16 03:30 Carbon Dioxide 22 mmol/L (22-32) 09/15/16 03:30 Anion Gap 8 mmol/L (2-11) 09/15/16 03:30 BUN 17 mg/dL (6-24) 09/15/16 03:30 Creatinine 0.89 mg/dL (0.67-1.17) 09/15/16 03:30 Est GFR ( Amer) 103.5 (>60) 09/15/16 03:30 Est GFR (Non-Af Amer) 80.5 (>60) 09/15/16 03:30 BUN/Creatinine Ratio 19.1 (8-20) 09/15/16 03:30 Glucose 108 mg/dL (70-100) H 09/15/16 03:30 Calcium 9.4 mg/dL (8.6-10.3) 09/15/16 03:30 Total Bilirubin 0.50 mg/dL (0.2-1.0) 09/15/16 03:30 AST 21 U/L (13-39) 09/15/16 03:30 ALT 13 U/L (7-52) 09/15/16 03:30 Alkaline Phosphatase 164 U/L (34-104) H 09/15/16 03:30 C-Reactive Protein 19.27 mg/L (< 5.00) H 09/15/16 03:30 Total Protein 6.3 g/dL (6.4-8.9) L 09/15/16 03:30 Albumin 3.5 g/dL (3.2-5.2) 09/15/16 03:30 Globulin 2.8 g/dL (2-4) 09/15/16 03:30 Albumin/Globulin Ratio 1.3 (1-3) 09/15/16 03:30 PE: NVI Assessment: 89 yo right hip greater trochanteric fracture; non-op Plan: 1) pain management 2) PT/OT- toe touch weight bearing only RLE; no hip abduction, no IR/ER 3) Hospitalist co-managing 4) Will continue to follow; OK to transfer to [place] when cleared by medicine
[2016-09-17 08:01] VITALS: BP 130/59
--- NOTE | 2016-09-17 08:22 | PN ---
Subjective Date of Service: 09/17/16 Interval History: Mr. Garcia denies any acute complaints, including chest pain, SOB, n/v. He denies pain when asked; nursing reports his pain seems well controlled. He only cries out with transfers and movement. Patient's HCP and , Citlali, is at the bedside. Patient was denied admission to [facility], and she has requested discharge to [facility] today for continued PT/OT there. No other acute concerns. Family History: Unchanged from Admission Social History: Unchanged from Admission Past Medical History: Unchanged from Admission Objective Active Medications: Acetaminophen (Tylenol Tab*) 650 mg PO Q6H PRN PRN Reason: FEVER/PAIN Last Admin: 09/15/16 15:08 Dose: 650 mg Albuterol (Ventolin 2.5 Mg/3 Ml Neb.[place]*) 2.5 mg INH Q2H PRN PRN Reason: SOB/WHEEZING Bicalutamide (Casodex (Nf)) 50 mg PO DAILY [facility] PRN Reason: Protocol Last Admin: 09/17/16 07:56 Dose: 50 mg Docusate Sodium (Colace Cap*) 200 mg PO BID [facility] Last Admin: 09/17/16 07:55 Dose: 200 mg Fentanyl Citrate (Fentanyl*) 25 mcg IV SLOW PU Q3H PRN PRN Reason: PAIN Haloperidol Lactate (Haldol Inj Iv/Im*) 2 mg IV SLOW PU Q6H PRN PRN Reason: AGITATION Hydromorphone HCl (Dilaudid Iv*) 0.5 mg IV SLOW PU Q4H PRN PRN Reason: PAIN Last Admin: 09/16/16 08:23 Dose: 0.5 mg Sodium Chloride (Ns 0.9% 1000 Ml*) 1,000 mls @ 50 mls/hr IV PER RATE [facility] Last Admin: 09/16/16 22:18 Dose: 50 mls/hr Megestrol Acetate (Megace Tab*) 20 mg PO DAILY [facility] Last Admin: 09/17/16 07:55 Dose: 20 mg Melatonin (Melatonin (Nf)) 3 mg PO BEDTIME PRN; Protocol PRN Reason: Sleep Last Admin: 09/16/16 22:15 Dose: 3 mg Metoprolol Succinate (Toprol Xl Tab*) 25 mg PO DAILY [facility] Last Admin: 09/17/16 07:55 Dose: 25 mg Omeprazole (Prilosec Cap*) 20 mg PO DAILY@0600 [facility] Last Admin: 09/17/16 05:27 Dose: 20 mg Ondansetron HCl (Zofran Inj*) 4 mg IV Q6H PRN PRN Reason: NAUSEA Quetiapine Fumarate (Seroquel Tab*) 12.5 mg PO DAILY PRN PRN Reason: AGITATION/ANXIETY Solifenacin (Vesicare(Nf)) 20 mg PO DAILY [facility] Last Admin: 09/17/16 07:18 Dose: Not Given Tramadol HCl (Ultram*) 50 mg PO Q6H PRN PRN Reason: PAIN Last Admin: 09/17/16 05:27 Dose: 50 mg Venlafaxine HCl (Effexor Xr Cap*) 37.5 mg PO DAILY [facility] Last Admin: 09/17/16 07:56 Dose: 37.5 mg Vital Signs 09/16/16 09/16/16 09/16/16 08:23 08:49 09:23 Temperature Pulse Rate 76 Respiratory 18 15 18 Rate Blood Pressure (mmHg) O2 Sat by Pulse 95 Oximetry 09/16/16 09/16/16 09/16/16 12:09 15:46 19:20 Temperature 98.0 F 98.0 F 97.7 F Pulse Rate 58 61 64 Respiratory 18 16 16 Rate Blood Pressure 116/59 127/49 129/53 (mmHg) O2 Sat by Pulse 100 97 100 Oximetry 09/16/16 09/16/16 09/16/16 20:00 22:00 23:20 Temperature 98.0 F Pulse Rate 67 Respiratory 17 17 16 Rate Blood Pressure 126/60 (mmHg) O2 Sat by Pulse 95 Oximetry 09/17/16 09/17/16 09/17/16 03:27 05:27 07:27 Temperature 97.5 F Pulse Rate 64 Respiratory 16 16 16 Rate Blood Pressure 147/55 (mmHg) O2 Sat by Pulse 95 Oximetry 09/17/16 07:52 Temperature 98.7 F Pulse Rate 61 Respiratory 18 Rate Blood Pressure 130/59 (mmHg) O2 Sat by Pulse 96 Oximetry Oxygen Devices in Use Now: None Appearance: Pleasant, elderly male patient, lying in bed, NAD Eyes: PERRLA Ears/Nose/Mouth/Throat: Mucous Membranes Moist Neck: NL Appearance and Movements; NL JVP Respiratory: Symmetrical Chest Expansion and Respiratory Effort, Clear to Auscultation Cardiovascular: NL Sounds; No Murmurs; No JVD, RRR Abdominal: NL Sounds; No Tenderness; No Distention Extremities: No Edema, No Clubbing, Cyanosis, - Skin: - - non-blanchable erythema to sacrum Neurological: - - alert, oriented to self only Lines/Tubes/Other Access: Clean, Dry and Intact Peripheral IV Nutrition: Taking PO's Result Diagrams: 09/15/16 14:01 09/15/16 03:30 Assess/Plan/Problems-Billing Assessment: Mr. Garcia is an 89 yo male with a PMH of stage 4 metastatic prostate ca, atrial fib, CAD with stent, HTN, overactive bladder, Alzheimer's dementia, and depression who was admitted on 09/15/16 after a fall at home; pt was found to have a fracture of the right greater trochanter (question if pathologic). - Patient Problems (1) Fracture of greater trochanter of right femur Code(s): S72.111A - DISP FX OF GREATER TROCHANTER OF RIGHT FEMUR, INIT Comment : Ortho recommends non-operative management Fracture suspected to be pathologic in origin Toe-touch weight bearing PT/OT Continue pain management Discharge to [facility] with PT/OT. Patient's will pursue palliative treatment as an outpatient. (2) Prostate cancer Code(s): C61 - MALIGNANT NEOPLASM OF PROSTATE Comment: Stage IV with metastases to bone Continue home bicalutamide Outpatient follow-up with oncology (3) Atrial fibrillation Code(s): I48.91 - UNSPECIFIED ATRIAL FIBRILLATION Comment: Not an active issue Continue home metoprolol. (4) CAD (coronary artery disease) Code(s): I25.10 - ATHSCL HEART DISEASE OF [place] CORONARY ARTERY W/O ANG PCTRS Comment: History of stent placement Continue beta luis antonio. (5) HTN (hypertension) Code(s): I10 - ESSENTIAL (PRIMARY) HYPERTENSION Comment: Normotensive Continue metoprolol. (6) Alzheimer's dementia Code(s): G30.9 - ALZHEIMER'S DISEASE, UNSPECIFIED Comment: Supportive care (7) Overactive bladder Code(s): N32.81 - OVERACTIVE BLADDER Comment: Continue vesicare. (8) Depression Code(s): F32.9 - MAJOR DEPRESSIVE DISORDER, SINGLE EPISODE, UNSPECIFIED Comment: Continue venlafaxine. (9) DVT prophylaxis Code(s): FQT1617 - Comment: Concern for acute pelvic hematoma, anticoagulation contraindicated SCDs (10) Full code status Code(s): Z78.9 - OTHER SPECIFIED HEALTH STATUS Comment: Discussed with patient's , who is HCP Remains full code as of 09/15/16 Status and Disposition: Inpatient admission. D/c to [facility] today.
--- NOTE | 2016-09-17 10:33 | DS ---
MEDICINE DISCHARGE SUMMARY: DATE OF ADMISSION: 09/15/16 DATE OF DISCHARGE: 09/17/16 PROVIDER: Lien Loza NP. ATTENDING PHYSICIAN: Dr. Kedar Cuellar *(as dictated by Lien Loza NP) CONSULTING PHYSICIANS: 1. Dr. Andrew Bowden. 2. Dr. Igor Millan. PRIMARY CARE PROVIDER: Dr. Igor Millan. PRIMARY DISCHARGE DIAGNOSIS: Right hip greater trochanteric fracture, likely pathologic, nonoperative. SECONDARY DISCHARGE DIAGNOSES: 1. Metastatic stage IV prostate cancer. 2. Atrial fibrillation. 3. History of coronary artery disease and stent placement. 4. Hypertension. 5. Depression. 6. Alzheimer's dementia. 7. Overactive bladder. MEDICATIONS AT DISCHARGE: 1. Metoprolol succinate 25 mg daily. 2. Bicalutamide 50 mg daily. 3. VESIcare 20 mg daily. 4. Fentanyl patch 25 mcg per hour transdermally q. 72 hours. 5. Venlafaxine ER 37.5 mg daily. 6. Zofran ODT 4 mg q. 6 hours p.r.n. 7. Megestrol 20 mg daily. 8. Tramadol 50 mg q. 6 hours p.r.n. This is a new medication. HOSPITAL COURSE OF STAY: For full details, please refer to the H and P provided by Dr. Dang on 09/15/16. In summary, Mr. Ayan Garcia is an 89-year-old male patient with a history significant for stage IV prostate cancer with extensive bony metastasis, who slipped out of a chair at home and then fell on to the floor. He was brought in for evaluation and a CT of his pelvis revealed a fracture of the right greater trochanter. There was also a suggestion that there was associated periosseous hematoma posterior to the fracture that measured up to 3.1 cm AP x 5.4 cm transverse x 7.3 cm cephalocaudal. There were also cortical irregularities that could be secondary to metastatic erosions. Given these findings, Orthopedic Surgery was consulted. It was felt that at this point, the fracture was not displaced and that nonoperative treatment was appropriate. It is not clear if this is a pathologic fracture or due to the fall. However , it appears more likely that it is pathologic. We did continue with nonoperative treatment here in the hospital. The patient was ordered toe-touch weightbearing and PT and OT consults were placed here in the hospital. Per the patient's 's request, we did have the patient screened for our [facility] Re[facility]; however, he did not qualify or meet the requirements for admission to the unit. The declined to have subacute rehab at any other nursing facilities and requested to have the patient discharged to [facility] where he was planning to go prior to this fall. We did discuss the possibility of establishing with hospicare in the outpatient setting in order to provide more support to the patient. The was receptive to this. However, she is very focused on the rehab portion of his injury and has declined to have palliative care consult here in the hospital at this time. She states that she has spoken with them and will follow with them as an outpatient. I did again explain that their services may be helpful in helping the patient maintain the most comfort in the outpatient setting. This can be followed up on while the patient is at [facility]. The patient has demonstrated good pain control with the tramadol. Additionally , we will be adding back his fentanyl patches which he has not been on here in the hospital. He has not required IV medication for over 24 hours. No other acute concerns. The patient is to follow up with Dr. Aggarwal within the next week. He should also follow up with Dr. Millan of Oncology as previously instructed. CONCERNS AT DISCHARGE: Mr. Garcia will be discharged to [facility] on 09/17/16 with appropriate followup with Dr. Aggarwal and Dr. Millan. DIET: Heart healthy diet. ACTIVITY: The patient is to be toe-touch weightbearing on the right lower extremity only. There should be no hip abduction and no internal or external rotation. Continue PT and OT. CONDITION: Guarded, stable. DISPOSITION: To [facility]. TIME SPENT: Time spent on this discharge was approximately 45 minutes. Again, this is only a brief summary of the patient's hospital course of stay. For full details, please refer to the full medical record. If you have any further questions or need further assistance, please feel free to contact me at . LIEN LOZA NP CC: Dr. Igor Millan; Dr. Andrew Giraldo* [id number]/CPS #: [id number] COREY
[2016-09-17] MEDS: HYDROmorphone* 1 MG/ML 1 ML SYR IV SLOW PU PRN (10:45)
== END 2016-09-17 11:00 ==
LOC: ED 00:07 → SSU 06:32 → INTOOBSV 06:32 → SSU 07:15
PROVIDERS: ADMIT Hospitalist; ATTEND Hospitalist
DX: S72.111A Displaced fracture of greater trochanter of right femur, initial encounter for closed fracture (principal); W07.XXXA Fall from chair, initial encounter; Y92.009 Unspecified place in unspecified non-institutional (private) residence as the place of occurrence of the external cause; C61 Malignant neoplasm of prostate; C79.9 Secondary malignant neoplasm of unspecified site; I48.91 Unspecified atrial fibrillation; I25.10 Atherosclerotic heart disease of native coronary artery without angina pectoris; Z95.5 Presence of coronary angioplasty implant and graft; I10 Essential (primary) hypertension; F32.9 Major depressive disorder, single episode, unspecified; G30.9 Alzheimer's disease, unspecified; F02.80 Dementia in other diseases classified elsewhere, unspecified severity, without behavioral disturbance, psychotic disturbance, mood disturbance, and anxiety; N32.81 Overactive bladder; Z79.899 Other long term (current) drug therapy; Z87.891 Personal history of nicotine dependence
CPT/HCPCS: 36415; 71010; 72192; 80053; 85014; 85018; 85025; 85610; 86140; 93005; 96374; 96375; 99212; 99214; 99232; 99284; A9270-GY; G0378; G0463; G8427; J1170; J3010